=== PATIENT | female | born 1985 | race Caucasian/White ===

== ENCOUNTER 2018-09-07 10:38 | Outpatient (CLI) | payer MEDICAID ==
[2018-09-07 11:27] LABS: ADD UMIC YES; UR ASCORBIC ACID NEGATIVE (NEGATIVE); UR BACTERIA FEW /HPF (NONE SEEN); UR BILIRUBIN (Dip) NEGATIVE (NEGATIVE); UR BLOOD (Dip) 3+ mg/dL (NEGATIVE); UR BUDDING YEAST FEW /HPF (NONE SEEN); UR CLARITY SLIGHTLY CLOUDY (CLEAR); UR COLOR YELLOW (YELLOW); UR GLUCOSE (Dip) NEGATIVE (NEGATIVE); UR KETONES (Dip) NEGATIVE (NEGATIVE); UR LEUKOCYTE ESTERASE (Dip) 2+ Leu/ul (NEGATIVE); UR NITRITE (Dip) NEGATIVE (NEGATIVE); UR RBC 3 /HPF (0-5); UR SPECIFIC GRAVITY (Dip) 1.004 (1.003-1.030); UR SQUAMOUS EPITHELIAL CELL FEW /HPF (FEW); UR TOTAL PROTEIN (Dip) NEGATIVE (NEGATIVE); UR UROBILINOGEN (Dip) NEGATIVE (NEGATIVE); UR WBC 2 /HPF (0-5)
== END 2018-09-07 12:10 | disposition home or self-care (01) ==
LOC: OBT 10:38 → L-D 10:40 → OBT 12:10
DX: O23.42 Unspecified infection of urinary tract in pregnancy, second trimester (principal); O26.852 Spotting complicating pregnancy, second trimester; Z3A.27 27 weeks gestation of pregnancy
CPT/HCPCS: 76817; 76818; 81001; 87086

== ENCOUNTER 2018-12-04 00:05 | Inpatient (IN) | payer MEDICAID ==
[2018-12-04] MEDS ORDERED: OXYTOCIN 30 UNITS/LR 500 ML IV ×4 (04:00→21:30)
[2018-12-04] MEDS ORDERED: MISOPROSTOL 200 MCG TAB PR ×2 (04:00→21:30)
[2018-12-04] MEDS ORDERED: LIDOCAINE 1% (MPF) 30 ML INJ INJ (04:00)
[2018-12-04] MEDS ORDERED: METHYLERGONOVINE 0.2 MG INJ IM ×2 (04:00→21:30)
[2018-12-04] MEDS ORDERED: IBUPROFEN 600 MG TAB PO (04:00)
[2018-12-04] MEDS ORDERED: CARBOPROST 250 MCG INJ IM ×2 (04:00→21:30)
[2018-12-04] MEDS: LACTATED RINGER'S 1,000 ML IV ×5 (04:40→19:06)
[2018-12-04 04:58] LABS: ADD MAN DIFF? NO
[2018-12-04 05:01] LABS: WHITE BLOOD COUNT 13.3 10^3/ul (4.8-10.8)
[2018-12-04 05:01] LABS: BASOPHIL # 0.1 10^3/ul (0.0-0.1); BASOPHILS % 0.5 % (0.0-2.0); EOSINOPHILS # 0.2 10^3/ul (0.0-0.5); EOSINOPHILS % 1.3 % (0.0-7.0); HEMATOCRIT 42.1 % (37.0-47.0); HEMOGLOBIN 14.1 g/dl (12.0-16.0); LYMPHOCYTES # 3.7 10^3/ul (0.8-2.9); LYMPHOCYTES % 27.9 % (15.0-51.0); MEAN CORPUSCULAR HEMOGLOBIN 31.4 pg (29.0-33.0); MEAN CORPUSCULAR HGB CONC 33.5 g/dl (32.0-37.0); MEAN CORPUSCULAR VOLUME 93.8 fl (82.0-101.0); MONOCYTE # 1.1 10^3/ul (0.3-0.9); MONOCYTES % 8.6 % (0.0-11.0); NEUTROPHIL # 8.1 10^3/ul (1.6-7.5); NEUTROPHILS % 60.7 % (39.0-77.0); PLATELET COUNT 260 10^3/UL (140-415); RED BLOOD COUNT 4.49 10^6/ul (4.20-5.40)
[2018-12-04 05:19] LABS: INR 0.88; PT RATIO 0.9
[2018-12-04 05:20] LABS: PARTIAL THROMBOPLASTIN TIME 28.7 Sec (23.0-35.0)
[2018-12-04 05:54] LABS: HEPATITIS B SURFACE ANTIGEN NEGATIVE (NEGATIVE)
[2018-12-04] MEDS: OXYTOCIN 30 UNITS/LR 500 ML IV ×2 (06:53→22:02)
[2018-12-04] MEDS ORDERED: BUTORPHANOL 2 MG INJ IV (10:30)
[2018-12-04] MEDS ORDERED: FENTAnyl 2MCG/ML-ROPIV 0.2% 100 ML (10:33)
[2018-12-04] MEDS ORDERED: DIPHENHYDRAMINE 50 MG INJ IV (13:30)
[2018-12-04] MEDS ORDERED: NALOXONE (0.4 MG/ML) INJ IV (13:30)
[2018-12-04] MEDS: FENTAnyl 2MCG/ML-ROPIV 0.2% 100 ML BAG EPI (14:36)
[2018-12-04 15:21] LABS: RAPID PLASMA REAGIN NONREACTIVE (NR)
[2018-12-04] MEDS: ONDANSETRON 4 MG INJ IV (19:04)
[2018-12-04] MEDS ORDERED: AMPICILLIN 2 GM/NS (PMX) 100 ML (20:12)
[2018-12-04] MEDS: AMPICILLIN 2 GM/NS (PMX) 100 ML IVPB (20:16)
[2018-12-04] MEDS ORDERED: ACETAMINOPHEN 325 MG TAB PO (20:30)
[2018-12-04] MEDS: GENTAMICIN 120 MG/NS (PMX) 100 ML IVPB (20:34)
[2018-12-04] MEDS: MINERAL OIL LIGHT 10 ML VIAL TOP (21:02)
[2018-12-04] MEDS ORDERED: LACTATED RINGER'S 1,000 ML IV* (21:28)
[2018-12-04] MEDS ORDERED: HYDROCODONE/APAP (5/325) TAB PO ×2 (21:30)
[2018-12-04] MEDS: LANOLIN HPA 1 PKT TOP (23:24)
[2018-12-04] MEDS: BENZOCAINE 20% 56 ML SPRAY TOP (23:25)
[2018-12-04] MEDS: DIBUCAINE 1% 30 GM OINT TOP (23:25)
[2018-12-04] MEDS: IBUPROFEN 600 MG TAB PO (23:25)
[2018-12-04] MEDS: WITCH HAZEL/GLYCERIN PAD PR (23:25)
[2018-12-05] MEDS: IBUPROFEN 600 MG TAB PO ×4 (05:34→23:57)
[2018-12-05 08:09] LABS: ABNORMAL IP MESSAGE 1; HEMATOCRIT 35.4 % (37.0-47.0); HEMOGLOBIN 11.7 g/dl (12.0-16.0); MEAN CORPUSCULAR HEMOGLOBIN 31.5 pg (29.0-33.0); MEAN CORPUSCULAR HGB CONC 33.1 g/dl (32.0-37.0); MEAN CORPUSCULAR VOLUME 95.4 fl (82.0-101.0); MEAN PLATELET VOLUME 10.1 fl (7.4-10.4); PLATELET COUNT 216 10^3/UL (140-415); RED BLOOD COUNT 3.71 10^6/ul (4.20-5.40)
[2018-12-05 08:09] LABS: WHITE BLOOD COUNT 31.6 10^3/ul (4.8-10.8)
[2018-12-05 08:10] LABS: POSITIVE DIFF @See below
[2018-12-05 08:11] LABS: ADD MAN DIFF? YES
[2018-12-05 09:39] LABS: BAND NEUTROPHILS #M 8.8 10^3/ul (0.0-0.6); BAND NEUTROPHILS % (M) 28 % (0-4); LYMPHOCYTES #M 3.4 10^3/ul (0.8-2.9); LYMPHOCYTES % (M) 11 % (15-51); MONOCYTE #M 0.9 10^3/ul (0.3-0.9); MONOCYTES % (M) 3 % (0-11); SEG NEUT #M 21.1 10^3/ul (1.6-7.5); SEGMENTED NEUTROPHILS (M) % 58 % (39-77)
[2018-12-05 09:40] LABS: ANISOCYTOSIS 2+ (0-0); BURR CELLS 1+ (0-0); MICROCYTOSIS 2+ (0-0); PLATELET ESTIMATE NORMAL; POIKILOCYTOSIS 1+ (0-0); POLYCHROMASIA 2+ (0-0); SMUDGE%M 3 % (0-0)
[2018-12-05] MEDS ORDERED: CLINDAMYCIN 900 MG (PMX) 50 ML IVPB (11:30)
[2018-12-05] MEDS ORDERED: GENTAMICIN 270 MG in SOD CHLORIDE 0.9% 100 ML IVPB (11:30)
[2018-12-05 13:43] LABS: LACTIC ACID 1.7 mmol/L (0.5-2.0)
[2018-12-05] MEDS: CLINDAMYCIN 900 MG (PMX) 50 ML IVPB ×2 (14:15→21:59)
[2018-12-05] MEDS: GENTAMICIN 270 MG in SOD CHLORIDE 0.9% 100 ML IVPB (15:21)
[2018-12-06] MEDS: CLINDAMYCIN 900 MG (PMX) 50 ML IVPB ×2 (05:36→13:02)
[2018-12-06] MEDS: IBUPROFEN 600 MG TAB PO ×2 (05:36→12:07)
[2018-12-06 08:16] LABS: ADD MAN DIFF? NO
[2018-12-06 08:20] LABS: BASOPHIL # 0.1 10^3/ul (0.0-0.1); BASOPHILS % 0.4 % (0.0-2.0); EOSINOPHILS # 0.3 10^3/ul (0.0-0.5); EOSINOPHILS % 1.5 % (0.0-7.0); HEMATOCRIT 34.2 % (37.0-47.0); HEMOGLOBIN 11.2 g/dl (12.0-16.0); LYMPHOCYTES # 3.4 10^3/ul (0.8-2.9); LYMPHOCYTES % 16.7 % (15.0-51.0); MEAN CORPUSCULAR HEMOGLOBIN 31.4 pg (29.0-33.0); MEAN CORPUSCULAR HGB CONC 32.7 g/dl (32.0-37.0); MEAN CORPUSCULAR VOLUME 95.8 fl (82.0-101.0); MEAN PLATELET VOLUME 10.5 fl (7.4-10.4); MONOCYTE # 1.4 10^3/ul (0.3-0.9); MONOCYTES % 6.6 % (0.0-11.0); NEUTROPHIL # 15.1 10^3/ul (1.6-7.5); NEUTROPHILS % 73.9 % (39.0-77.0); PLATELET COUNT 230 10^3/UL (140-415); RED BLOOD COUNT 3.57 10^6/ul (4.20-5.40); RED CELL DISTRIBUTION WIDTH 14.5 % (11.5-14.5)
[2018-12-06 08:20] LABS: WHITE BLOOD COUNT 20.5 10^3/ul (4.8-10.8)
[2018-12-06 08:45] LABS: CREATININE 0.46 mg/dl (0.44-1.00)
[2018-12-06 08:45] LABS: BLOOD UREA NITROGEN 8 mg/dl (7-20)
[2018-12-06 08:54] LABS: GENTAMICIN,RANDOM < 0.6 ug/ml
[2018-12-06] MEDS: MEASLES,MUMPS,RUBELLA VACCINE INJ SC* (09:00)
[2018-12-06] MEDS: DIPHTH/TET/ACEL PERTUSS (ADULT) 0.5 ML VIAL IM* (09:00)
[2018-12-06] MEDS: VARICELLA VACCINE LIVE/PF 1,350 UNIT/0.5 ML ML SC* (09:00)
[2018-12-06] MEDS: GENTAMICIN 270 MG in SOD CHLORIDE 0.9% 100 ML IVPB (14:13)
== END 2018-12-06 16:40 | disposition home or self-care (01) | DRG 807 ==
LOC: OBT 00:05 → L-D 00:05 → OBT 03:10 → L-D 03:10 → PP1 22:30
PROVIDERS: Obstetrics & Gynecology
PROC: 10E0XZZ Delivery of Products of Conception, External Approach (ICD-10-PCS; principal; 2018-12-04)
PROC: 0KQM0ZZ Repair Perineum Muscle, Open Approach (ICD-10-PCS; 2018-12-04)
PROC: 3E033VJ Introduction of Other Hormone into Peripheral Vein, Percutaneous Approach (ICD-10-PCS; 2018-12-04)
DX: O70.1 Second degree perineal laceration during delivery (principal); O48.0 Post-term pregnancy; O69.81X0 Labor and delivery complicated by cord around neck, without compression, not applicable or unspecified; Z3A.40 40 weeks gestation of pregnancy; Z37.0 Single live birth
CPT/HCPCS: 62322; 76815; 80170; 82565; 83605; 84520; 85025; 85610; 85730; 86592; 86850; 86900; 86901; 87040-91; 87340; 88307; 90716; 99464

== ENCOUNTER 2018-12-09 02:26 | Emergency (ER) | payer MEDICAID ==
[2018-12-09] MEDS: ONDANSETRON 4 MG INJ IV (03:27)
[2018-12-09] MEDS: FENTAnyl 50 MCG/ML VIAL IV (03:27)
[2018-12-09 03:29] LABS: WHITE BLOOD COUNT 15.1 10^3/ul (4.8-10.8)
[2018-12-09 03:29] LABS: ADD MAN DIFF? NO; BASOPHIL # 0.1 10^3/ul (0.0-0.1); BASOPHILS % 0.6 % (0.0-2.0); EOSINOPHILS # 0.4 10^3/ul (0.0-0.5); EOSINOPHILS % 2.5 % (0.0-7.0); HEMATOCRIT 44.5 % (37.0-47.0); HEMOGLOBIN 14.9 g/dl (12.0-16.0); LYMPHOCYTES # 2.7 10^3/ul (0.8-2.9); LYMPHOCYTES % 17.9 % (15.0-51.0); MEAN CORPUSCULAR HEMOGLOBIN 31.4 pg (29.0-33.0); MEAN CORPUSCULAR HGB CONC 33.5 g/dl (32.0-37.0); MEAN CORPUSCULAR VOLUME 93.7 fl (82.0-101.0); MEAN PLATELET VOLUME 9.1 fl (7.4-10.4); MONOCYTE # 0.9 10^3/ul (0.3-0.9); MONOCYTES % 6.2 % (0.0-11.0); NEUTROPHIL # 10.8 10^3/ul (1.6-7.5); NEUTROPHILS % 71.7 % (39.0-77.0); PLATELET COUNT 372 10^3/UL (140-415); RED BLOOD COUNT 4.75 10^6/ul (4.20-5.40); RED CELL DISTRIBUTION WIDTH 13.8 % (11.5-14.5)
[2018-12-09 03:47] LABS: INR 0.95; PROTIME 12.8 Sec (11.9-14.9)
[2018-12-09 03:48] LABS: PARTIAL THROMBOPLASTIN TIME 29.8 Sec (23.0-35.0)
[2018-12-09 03:49] LABS: ALANINE AMINOTRANSFERASE 36 IU/L (13-69); ALBUMIN 3.6 g/dl (3.3-4.9); ALBUMIN/GLOBULIN RATIO 0.87; ALKALINE PHOSPHATASE 128 IU/L (42-121); ANION GAP 8 (5-13); ASPARTATE AMINO TRANSFERASE 33 IU/L (15-46); BILIRUBIN,INDIRECT 0.4 mg/dl (0-1.1); BILIRUBIN,TOTAL 0.4 mg/dl (0.2-1.3); BLOOD UREA NITROGEN 9 mg/dl (7-20); CARBON DIOXIDE 23 mmol/L (21-31); CHLORIDE 108 mmol/L (97-110); CREATININE 0.58 mg/dl (0.44-1.00); Estimated GFR > 60 mL/min (>60); GLUCOSE 101 mg/dl (70-220); POTASSIUM 4.1 mmol/L (3.5-5.1); SODIUM 139 mmol/L (135-144); TOTAL PROTEIN 7.7 g/dl (6.1-8.1)
== END 2018-12-09 05:05 | disposition home or self-care (01) ==
LOC: E/R 02:26
DX: G89.18 Other acute postprocedural pain (principal)
CPT/HCPCS: 74176; 76856; 80053; 84702; 85025; 85610; 85730; 96374; 96375; 99285-25